=== PATIENT | female | born 1990 | race Caucasian/White ===

== ENCOUNTER 2018-05-24 07:42 | Emergency (ER) | payer BC, OTHER ==
[~2018-05-24] VITALS: Ht 170.2 cm; Wt 97.5 kg
--- NOTE | 2018-05-24 08:19 | ED GU-Female ---
General Chief Complaint: -Female Stated Complaint: ABD CRAMPING,VAGINAL BLEEDING 11WKS Source: patient Exam Limitations: no limitations History of Present Illness Date Seen by Provider: May 24, 2018 Time Seen by Provider: 07:53 Initial Comments Here with report of vaginal bleeding. Apparently passing clots this morning. She is approximately 11 weeks . She did have sexual activity 2 days ago and was concerned about bleeding. does have some mild cramping. Denies nausea except for her typical nausea with and no vomiting recently. Denies fever or chills. Denies dysuria or diarrhea. Denies vaginal discharge otherwise. Timing/Duration: this morning Severity/Quality: mild, cramping Location: suprapubic Radiation: none Activities at Onset: none Sexual [place] History: less than 2 months ago, single partner Modifying Factors: Improves With Resting Associated Symptoms: abdominal pain; No fever/chills, No lower back pain; nausea/vomiting; No urinary frequency Allergies and Home Medications Allergies Coded Allergies: Penicillins (Verified Allergy, Unknown, 05/24/18) Patient Home Medication List Home Medication List Reviewed: Yes Review of Systems Review of Systems Constitutional: see HPI; No chills, No fever Respiratory: no symptoms reported Cardiovascular: no symptoms reported Gastrointestinal: see HPI Genitourinary: see HPI : Yes LMP: Mar 13, 2018 Musculoskeletal: no symptoms reported Skin: no symptoms reported Psychiatric/Neurological: No Symptoms Reported Past Oucbpes-Udzlkd-Jupxbh Hx Past Med/Social Hx: Reviewed Nursing Past Med/Soc Hx Patient Social History Alcohol Use: Denies Use Recreational Drug Use: No Smoking Status: Former Smoker Former Smoker, Quit: Feb 15, 2018 2nd Hand Smoke Exposure: Yes Recent Foreign Travel: No Contact w/Someone Who Travel: No Recent Hopitalizations: No Seasonal Allergies Seasonal Allergies: No Past Medical History Surgeries: Yes (bilat. knees) Orthopedic Respiratory: No Cardiac: No Neurological: No Genitourinary: No Gastrointestinal: No Musculoskeletal: No Endocrine: No HEENT: No Cancer: No Psychosocial: No Family Medical History Reviewed Nursing Family Hx No Pertinent Family Hx Physical Exam Vital Signs Vital Signs - First Documented 05/24/18 07:50 Temp 98.8 Pulse 79 Resp 20 B/P (MAP) 141/89 (106) Pulse Ox 100 O2 Delivery Room Air Capillary Refill : Height, Weight, BMI Height: '" Weight: lbs. oz. kg; BMI Method: General Appearance: WD/WN, no apparent distress Neck: full range of motion, supple Cardiovascular: regular rate, rhythm, no murmur Respiratory: lungs clear, normal breath sounds Gastrointestinal: non tender, soft Back: normal inspection, no CVA tenderness, no vertebral tenderness Extremities: non-tender, normal inspection Neurologic/Psychiatric: alert, oriented x 3 Skin: normal color, warm/dry Progress/Results/Core Measures Suspected Sepsis SIRS Temperature: Pulse: Respiratory Rate: Laboratory Tests 05/24/18 08:17: White Blood Count 6.5 Blood Pressure / Mean: Laboratory Tests 05/24/18 08:17: Platelet Count 176 Results/Orders Lab Results Laboratory Tests Test 05/24/18 08:17 05/24/18 08:37 Range/Units White Blood Count 6.5 4.3-11.0 10^3/uL Red Blood Count 4.42 4.35-5.85 10^6/uL Hemoglobin 14.0 11.5-16.0 G/DL Hematocrit 40 35-52 % Mean Corpuscular Volume 90 80-99 FL Mean Corpuscular Hemoglobin 32 25-34 PG Mean Corpuscular Hemoglobin Concent 35 32-36 G/DL Red Cell Distribution Width 12.1 10.0-14.5 % Platelet Count 176 130-400 10^3/uL Mean Platelet Volume 10.1 7.4-10.4 FL Human Chorionic Gonadotropin, Quant 76905 H <5 MIU/ML Urine Color BROWN H Urine Clarity VERY CLOUDY H Urine pH 6.5 5-9 Urine Specific [place] 1.015 L 1.016-1.022 Urine Protein 2+ H NEGATIVE Urine Glucose (UA) NEGATIVE NEGATIVE Urine Ketones NEGATIVE NEGATIVE Urine Nitrite NEGATIVE NEGATIVE Urine Bilirubin NEGATIVE NEGATIVE Urine Urobilinogen NORMAL NORMAL MG/DL Urine Leukocyte Esterase 2+ H NEGATIVE Urine RBC (Auto) 5+ H NEGATIVE Urine RBC TNTC H /HPF Urine WBC 10-25 H /HPF Urine Squamous Epithelial Cells RARE /HPF Urine Crystals NONE /LPF Urine Bacteria TRACE /HPF Urine Casts NONE /LPF Urine Mucus NEGATIVE /LPF Urine Culture Indicated YES My Orders Orders - BERE STEVENSON MD Hcg,Quantitative (05/24/18 08:08) Abo Rh Type (05/24/18 08:08) Us Ob Single Fetus<14 [id number] (05/24/18 08:08) Cbc No Diff (05/24/18 08:08) Ua Culture If Indicated (05/24/18 08:34) Urine Culture (05/24/18 08:37) Vital Signs/I&O 05/24/18 07:50 Temp 98.8 Pulse 79 Resp 20 B/P (MAP) 141/89 (106) Pulse Ox 100 O2 Delivery Room Air Capillary Refill : Progress Note : Progress Note Seen and evaluated. Bedside ultrasound performed by me. Does appear to have gravid uterus but no obvious pole or heart tones noted. There does appear to be debris within the uterus. We will get blood type, CBC and hCG Quant and order formal ultrasound. Patient and family informed of my concerns. 0935: Formal ultrasound complete and preliminary results show demise at approximately 8 weeks. No heart tones noted. This was discussed with patient and family. Patient is passing increasing amount of clots currently. She is not in significant pain and is okay with and see if the miscarriage will complete without D&C. She will follow-up with Dr. Waite tomorrow. Patient is O + and does not require RhoGAM. Discharged home with return precautions. Patient and family verbalize understanding instructions and agreement with plan. Diagnostic Imaging Diagonstic Imaging: Ultrasound Plain Films/CT/US/NM/MRI: pelvis Comments Intrauterine demise with no heart tones and pole of approximately 8 2/7 weeks. Departure Impression Primary Impression: Incomplete miscarriage Disposition: HOME, SELF-CARE Condition: Stable Departure-Patient Inst. Decision time for Depature: 09:39 Referrals: JOHN WAITE DO (PCP/Family) Primary Care Physician Patient Instructions: Miscarriage (DC) Add. Discharge Instructions: All discharge instructions reviewed with patient and/or family. Voiced understanding. Follow-up with your doctor tomorrow for recheck and further evaluation. Return for markedly increasing pain, bleeding greater than 2 pads per hour for more than 2 hours, fever, weakness or other concerns as needed. You may take Tylenol /acetaminophen 1000 mg every 8 hours as needed for pain. You may take ibuprofen 800 mg every 8 hours as needed for pain. Your beta hCG level was 32530 and your blood type is O+. BERE STEVENSON MD May 24, 2018 08:19
[2018-05-24 08:25] LABS: MEAN PLATELET VOLUME 10.1 FL (7.4-10.4); RED BLOOD COUNT 4.42 10^6/uL (4.35-5.85); RED CELL DISTRIBUTION WIDTH 12.1 % (10.0-14.5); WHITE BLOOD COUNT 6.5 10^3/uL (4.3-11.0)
[2018-05-24 08:40] LABS: BILIRUBIN,URINE NEGATIVE (NEGATIVE); CLARITY,URINE VERY CLOUDY; COLOR,URINE BROWN; GLUCOSE, URINE (UA) NEGATIVE (NEGATIVE); KETONES,URINE NEGATIVE (NEGATIVE); LEUKOCYTE ESTERASE ,URINE 2+ (NEGATIVE); NITRITE,URINE NEGATIVE (NEGATIVE); PH,URINE 6.5 (5-9); PROTEIN,URINE 2+ (NEGATIVE); UROBILINOGEN,URINE NORMAL (NORMAL)
[2018-05-24 08:48] LABS: BACTERIA,URINE TRACE /HPF; RBC,URINE TNTC /HPF; SQUAMOUS EPITHELIAL CELL,UR RARE /HPF
--- NOTE | 2018-05-24 09:50 | Diagnostic Imaging Report ---
INDICATION: Cramping and bleeding. First trimester . COMPARISON: None. TECHNIQUE: Transvaginal sonogram was performed. FINDINGS: There is a single intrauterine gestational sac. Within the gestational sac, there is a pole. pole measures 1.7 cm in length. This is consistent with 8 week and 2 day-old gestation. However, no heart movement can be identified. Findings are consistent with demise. Uterine fibroid is noted and measures 2.2 x 2.1 x 2.5 cm. Evaluation of the adnexa was performed, but ovaries cannot be adequately identified. No adnexal masses are seen. There is no significant free fluid. IMPRESSION: 1. Findings consistent with demise. Dictated by: Dictated on workstation # [id number]
[2018-05-24 10:02] VITALS: BP 122/79
== END 2018-05-24 10:02 | disposition home or self-care (01) ==
LOC: EDUNIT# 07:42 → ER 07:44
DX: O03.4 Incomplete spontaneous abortion without complication (principal); Z88.0 Allergy status to penicillin; Z3A.11 11 weeks gestation of pregnancy; Z87.891 Personal history of nicotine dependence
CPT/HCPCS: 36415; 76817; 81000; 84702; 85027; 86900; 86901; 87088

== ENCOUNTER 2020-04-10 05:27 | Inpatient (IN) | payer BC ==
[2020-04-10] VITALS (71 sets, daily range): BP systolic 93–146; BP diastolic 51–85
[~2020-04-10] VITALS: Ht 172.7 cm; Wt 118.0 kg
[2020-04-10] MEDS ORDERED: D5 LR IV SOLUTION 1,000 ML IV ONE (06:01)
[2020-04-10] MEDS: D5 LR IV SOLUTION 1,000 ML IV SCH ×3 (06:39→22:06)
--- NOTE | 2020-04-10 07:12 | NUR ---
Pt report received from Joi PATEL at this time. Pt already has IV with IV fluids running. Pt states she does not want an epidural. Dr Waite plans to be here this AM for AROM.
[2020-04-10] MEDS ORDERED: OXYTOCIN PRE-MIX DRIP 500 ML IV SCH (07:15)
[2020-04-10] MEDS ORDERED: MINERAL OIL CONCENTRATE 99.9% 15 ML UDC TOP PRN (07:15)
[2020-04-10 07:25] LABS: BASOPHILS % (AUTO) 0 % (0-10); EOSINOPHILS # (AUTO) 0.1 10^3/uL (0.0-0.3); EOSINOPHILS % (AUTO) 1 % (0-10); HEMATOCRIT 38 % (35-52); HEMOGLOBIN 12.9 G/DL (11.5-16.0); LYMPHOCYTES # (AUTO) 2.2 X 10^3 (1.0-4.0); LYMPHOCYTES % (AUTO) 26 % (12-44); MEAN CORPUSCULAR HEMOGLOBIN 32 PG (25-34); MEAN CORPUSCULAR HGB CONC 34 G/DL (32-36); MEAN CORPUSCULAR VOLUME 92 FL (80-99); MEAN PLATELET VOLUME 11.5 FL (7.4-10.4); MONOCYTES # (AUTO) 0.6 X 10^3 (0.0-1.0); MONOCYTES % (AUTO) 7 % (0-12); NEUTROPHILS # (AUTO) 5.6 X 10^3 (1.8-7.8); NEUTROPHILS % (AUTO) 65 % (42-75); PLATELET COUNT 210 10^3/uL (130-400); RED CELL DISTRIBUTION WIDTH 13.6 % (10.0-14.5); WHITE BLOOD COUNT 8.5 10^3/uL (4.3-11.0)
--- NOTE | 2020-04-10 08:00 | History & Physical-OB/GYN ---
History of Present Illness History of Present Illness Reason for visit/HPI Ms. Brambila, A1 at 39 weeks, presents to the hospital for Pitocin Induction of Labor. Date of Admission Apr 10, 2020 at 05:27 Date Seen by a Provider: Apr 10, 2020 Time Seen by a Provider: 07:10 I consulted on this patient on 04/10/20 07:52 Attending Physician Darien Waite DO Admitting Physician Darien Waite DO Consult Allergies and Home Medications Allergies Coded Allergies: Penicillins (Verified Allergy, Unknown, 05/24/18) sulfacetamide (Verified Allergy, Unknown, 04/10/20) Patient Home Medication List Home Medication List Reviewed: Yes Past Yigkpuj-Joszqs-Tvclaw Hx Patient Social History Number of Children: 0 Number of living children: 0 Alcohol Use: Denies Use Smoking Status: Former Smoker Former Smoker, Quit: Feb 15, 2018 2nd Hand Smoke Exposure: Yes Recent Foreign Travel: No Contact w/other who traveled: No Recent Hopitalizations: No Seasonal Allergies Seasonal Allergies: No Surgeries Yes (bilat. knees) Orthopedic Respiratory No Cardiovascular No Neurological No Reproductive System : Yes Expected Date of Delivery: Apr 17, 2020 Hx Reproductive Disorders: No Sexually Transmitted Disease: No HIV/AIDS: No Genitourinary No Gastrointestinal No Musculoskeletal No Endocrine History of Endocrine Disorders: No HEENT History of HEENT Disorders: No Cancer No Psychosocial History of Psychiatric Problem: No Integumentary History of Skin or Integumenta: No Blood Transfusions History of Blood Disorders: No Family Medical History Significant Family History: No Pertinent Family Hx Review of Systems Constitutional: see HPI Physical Exam Physical Exam Vital Signs Vital Signs Date Time Temp Pulse Resp B/P (MAP) Pulse Ox O2 Delivery O2 Flow Rate FiO2 04/10/20 06:00 36.4 90 18 128/82 (97) 97 Capillary Refill : Labs Laboratory Tests 04/10/20 06:00: White Blood Count 8.5, Red Blood Count 4.10L, Hemoglobin 12.9, Hematocrit 38, Mean Corpuscular Volume 92, Mean Corpuscular Hemoglobin 32, Mean Corpuscular Hemoglobin Concent 34, Red Cell Distribution Width 13.6, Platelet Count 210, Mean Platelet Volume 11.5H, Neutrophils (%) (Auto) 65, Lymphocytes (%) (Auto) 26, Monocytes (%) (Auto) 7, Eosinophils (%) (Auto) 1, Basophils (%) (Auto) 0, Neutrophils # (Auto) 5.6, Lymphocytes # (Auto) 2.2, Monocytes # (Auto) 0.6, Eosinophils # (Auto) 0.1, Basophils # (Auto) 0.0 General Appearance: No Apparent Distress Respiratory: Chest Non Tender, Lungs Clear, Normal Breath Sounds Cardiovascular: Regular Rate, Rhythm, No Murmur Abdominal: normal bowel sounds, soft Gynecology/General: No lesions Labia: WNL Vagina: WNL Cervix: WNL Cervix Mass: soft Cervix OS: open (1 cm/50%/-3 Vertex/Intact) Uterus: WNL, Enlarged (Gravid) Extremity: Normal Inspection, Non Tender Assessment/Plan Assessment and Plan Assessment: Intrauterine at 39 weeks Plan: Pitocin Induction of Labor. AROM. Pain management per patient's request. I expect a normal spontaneous vaginal delivery Admission Diagnosis Admission Status: Inpatient Order (span 2 midnights) Reason for Inpatient Admission: Intrauterine at 39 weeks being induced DARIEN WAITE DO Apr 10, 2020 08:00
--- NOTE | 2020-04-10 11:45 | NUR ---
Dr Waite updated on pt report by this RN at this time. /-2 SVE by this RN. Pitocin rate at 20 milliunits/hr, UC q2min. Category 1 FHT. Still having a difficult time tracing FHT. Pt declined FSE placement wiht RN's last SVE due to pain. Pt doing well otherwise. No new orders received.
--- NOTE | 2020-04-10 12:45 | NUR ---
Dr Waite at bedside at 1215. RN updated Dr that pitocin rate was decreased due to possible hyperstimulation/ UC rate. Pitocin rate now at 16. Dr Waite performs SVE and places FSE at 1216. Variables present after SVE/FSE placement. This RN turns pt to R side at 1217 then to L side at 1219. Pitocin turned off at 1221, pt repositioned to high fowlers. fluid bolus started at 1223 and O2 on via nonrebreather at 10L. recovered. This RN remains at bedside, answers questions. Dr Waite notified of events by this RN at 1243. FHT strip reviewed by Dr Waite. Orders received to restart pitocin at approx 1300 at 2 milliunits/hr and increase slowly.
--- NOTE | 2020-04-10 14:57 | NUR ---
Dr Waite updated on pt report. /-1, UC q 2-3 min on 4 of pitocin. Hurting good with UC, considering pain meds/epidural. Baby only tolerates certain positions but otherwise doing well.
--- NOTE | 2020-04-10 15:43 | NUR ---
Juanis Ritchie CHIP APPLYING MACHINE TENDER called by RN for epidural placement. Chau states she will be 30 minutes ETA.
[2020-04-10] MEDS ORDERED: fentaNYL 2 mcg/ml BUPIVA 0.125 100 ML ONE (15:46)
[2020-04-10] MEDS ORDERED: fentaNYL INJECTION 100 MCG/2 ML AMP ONE (16:20)
[2020-04-10] MEDS ORDERED: BUPIVACAINE 0.25% 30 ML (SENSORCAINE) VIAL ONE (16:20)
[2020-04-10] MEDS: EPIDURAL (fentaNYL 2 MCG/ML BUPIVA 0.125%)100 ML BAG EPI PRN ×2 (16:38→23:27)
[2020-04-10] MEDS ORDERED: LACTATED RINGERS 1,000 ML IV SCH (16:52)
[2020-04-10] MEDS ORDERED: METOCLOPRAMIDE INJ 10 MG/2 ML (REGLAN) IV PRN (17:00)
[2020-04-10] MEDS ORDERED: NALOXONE 0.4 MG/ML 1 ML (NARCAN) VIAL IV PRN ×2 (17:00)
[2020-04-10] MEDS ORDERED: diphenhydrAMINE 50 MG/ML INJ (BENADRYL) IV PRN (17:00)
[2020-04-10] MEDS ORDERED: ONDANSETRON 4 MG/2 ML (SDV) Z0FRAN IV PRN (17:00)
--- NOTE | 2020-04-10 17:30 | NUR ---
Dr carter updated on pt report. 1 with epidural now and resting well through UC. UC pattern, T reviewed. No new orders received. on unit at this time.
--- NOTE | 2020-04-10 19:11 | NUR ---
report given to dio plummer at this time.
--- NOTE | 2020-04-10 19:35 | NUR ---
PT CONT TO SIT UP IN BED. DENIES ANY PAIN AT THIS TIME. ENCOURAGED TO CONTINUE TO REST. AT SIDE.
[2020-04-11] VITALS (16 sets, daily range): BP systolic 112–158; BP diastolic 60–88
[2020-04-11] MEDS ORDERED: LIDOCAINE 1% INJ 20 ML 20 ML VIAL ONE ×2 (01:46→01:48)
[2020-04-11] MEDS ORDERED: OXYTOCIN PRE-MIX DRIP 500 ML IV SCH (02:27)
[2020-04-11] MEDS ORDERED: MEASLES,MUMPS,RUBELLA 1 EA INJ SQ ONE (02:30)
[2020-04-11] MEDS ORDERED: DIBUCAINE (NUPERCAINAL) 1% OINT 30 GM TOP PRN (02:30)
[2020-04-11] MEDS ORDERED: BENZOCAINE/MENTHOL (DERMOPLAST) 60 ML CAN TP PRN (02:30)
[2020-04-11] MEDS ORDERED: TETANUS,DIPTH,PERTUSS P/F (BOOSTRIX) 0.5 ML VIAL IM ONE (02:30)
--- NOTE | 2020-04-11 02:33 | OB Labor & Delivery Record ---
Vag Delivery Note Vag Delivery Note Date of Delivery: 04/11/20 Preoperative Diagnosis: Clint hamlin a (29 /Para / ,Gestational Age (wks)39 08/24 Postoperative Diagnosis: Same Surgeon: JOHN BABIN Postal Transportation Clerk: [None] Anesthesia: [Epidural and Pudendal Block] Delivery Type: [Normal Spontaneous Viable Laquey] Findings: [A healthy viable male ] Viable [Male] , apgars [], weight [] Lacerations: Midline Episiotomy Intact placenta with 3 vessel cord. No nuchal cord, body cord or shoulder dystocia Estimated Blood Loss: [300] ml Complications: None Condition: Stable Description of Procedure: The patient is a 29 year old female who presented [for Pitocin Induction of Labor]. She was admitted and informed consent was obtained. Her labor course was unremarkable. She progressed to complete dilatation and began to push. She was then set up for delivery. The infant's head was delivered atraumatically in the [KARLO] position. The shoulders and remainder of the 's body were then delivered without difficulty. Upon delivery, the head was held below the level of the perineum and the mouth and nares were bulb suctioned. The cord was doubly clamped and cut and the was handed off to the pediatric staff where NRP protocol was followed. An intact placenta with 3-vessel cord delivered via Markus and there was found to be minimal bleeding.~ Vigorous fundal massage was performed and the fundus was found to be firm. IV oxytocin was given. Examination of the vagina and perineum revealed a [midline episiotomy] that was repaired in the usual fashion with 3-0 and 2-0 vicryl suture. Following the repair, sponge, instrument and needle counts were correct. Mom and baby were both in stable condition in the labor suite. Vitals - Labs Vital Signs - I&O Vital Signs Date Time Temp Pulse Resp B/P (MAP) Pulse Ox O2 Delivery O2 Flow Rate FiO2 04/11/20 00:00 79 143/76 (98) Room Air 04/10/20 23:45 84 137/76 (96) Room Air 04/10/20 23:30 84 130/79 (96) Room Air 04/10/20 23:15 79 136/71 (92) Room Air 04/10/20 23:00 80 115/55 (75) Room Air 04/10/20 22:45 75 109/61 (77) Room Air 04/10/20 22:30 36.8 72 98/55 (69) Room Air 04/10/20 22:15 73 97/53 (68) Room Air 04/10/20 22:00 79 106/56 (73) Room Air 04/10/20 21:45 73 102/69 (80) Room Air 04/10/20 21:30 73 106/64 (78) Room Air 04/10/20 21:15 75 114/63 (80) Room Air 04/10/20 21:00 36.9 73 103/57 (72) Room Air 04/10/20 20:45 75 114/63 (80) Room Air 04/10/20 20:30 82 127/68 (87) Room Air 04/10/20 20:15 88 117/72 (87) Room Air 04/10/20 20:00 87 117/73 (88) Room Air 04/10/20 19:45 77 119/67 (84) Room Air 04/10/20 19:30 78 118/59 (78) Room Air 04/10/20 19:15 81 118/69 (85) Room Air 04/10/20 19:00 84 111/78 (89) Room Air 04/10/20 18:45 72 100/59 (73) Room Air 04/10/20 18:30 36.6 73 93/53 (66) Room Air 04/10/20 18:15 80 16 118/62 (80) Room Air 04/10/20 18:00 78 119/67 (84) Room Air 04/10/20 17:45 87 121/70 (87) Room Air 04/10/20 17:35 72 124/67 (86) 99 Room Air 04/10/20 17:30 36.1 73 124/67 (86) Room Air 04/10/20 17:25 85 127/69 (88) Room Air 04/10/20 17:20 79 132/65 (87) Room Air 04/10/20 17:15 80 128/72 (90) Room Air 04/10/20 17:10 72 127/71 (89) Room Air 04/10/20 17:05 91 126/70 (88) Room Air 04/10/20 17:00 93 132/69 (90) Room Air 04/10/20 16:57 83 127/63 (84) Room Air 04/10/20 16:53 83 123/67 (85) Room Air 04/10/20 16:50 87 119/68 (85) Room Air 04/10/20 16:47 80 114/59 (77) Room Air 04/10/20 16:45 80 115/56 (75) Room Air 04/10/20 16:43 80 115/56 (75) 98 Room Air 04/10/20 16:39 80 138/63 (88) 99 Room Air 04/10/20 16:30 84 131/83 (99) Room Air 04/10/20 16:15 76 138/79 (98) Room Air 04/10/20 16:00 83 129/68 (88) Room Air 04/10/20 15:45 76 128/70 (89) Room Air 04/10/20 15:30 80 144/78 (100) Room Air 04/10/20 15:15 78 18 115/70 (85) Room Air 04/10/20 15:00 Room Air 04/10/20 14:45 Room Air 04/10/20 14:30 Room Air 04/10/20 14:15 86 131/77 (95) Room Air 04/10/20 14:00 36.3 75 122/66 (84) Room Air 04/10/20 13:45 80 121/72 (88) Room Air 04/10/20 13:30 75 111/51 (71) Room Air 04/10/20 13:15 36.6 75 18 118/70 (86) Room Air 04/10/20 13:00 75 129/78 (95) Room Air 04/10/20 12:45 83 129/75 (93) Non Rebreather 10.00 04/10/20 12:30 70 116/67 (83) Non Rebreather 10.00 04/10/20 12:15 77 131/66 (87) Room Air 04/10/20 12:00 76 133/58 (83) Room Air 04/10/20 11:45 76 124/74 (91) Room Air 04/10/20 11:30 Room Air 04/10/20 11:15 80 122/73 (89) Room Air 04/10/20 11:00 36.5 75 18 126/75 (92) Room Air 04/10/20 10:45 76 123/63 (83) Room Air 04/10/20 10:30 73 110/62 (78) Room Air 04/10/20 10:15 77 128/73 (91) Room Air 04/10/20 10:00 82 129/73 (91) Room Air 04/10/20 09:45 71 136/64 (88) Room Air 04/10/20 09:30 79 134/74 (94) Room Air 04/10/20 09:15 87 133/85 (101) Room Air 04/10/20 09:00 83 126/63 (84) Room Air 04/10/20 08:45 82 122/69 (86) 04/10/20 08:30 76 129/71 (90) 04/10/20 08:15 82 16 146/67 (93) 04/10/20 08:00 36.4 04/10/20 06:00 36.4 90 18 128/82 (97) 97 I & O 04/11/20 07:00 Intake Total 1000 ml Balance 1000 ml Labs Laboratory Tests 04/10/20 06:00: White Blood Count 8.5, Red Blood Count 4.10L, Hemoglobin 12.9, Hematocrit 38, Mean Corpuscular Volume 92, Mean Corpuscular Hemoglobin 32, Mean Corpuscular Hemoglobin Concent 34, Red Cell Distribution Width 13.6, Platelet Count 210, Mean Platelet Volume 11.5H, Neutrophils (%) (Auto) 65, Lymphocytes (%) (Auto) 26, Monocytes (%) (Auto) 7, Eosinophils (%) (Auto) 1, Basophils (%) (Auto) 0, Neutrophils # (Auto) 5.6, Lymphocytes # (Auto) 2.2, Monocytes # (Auto) 0.6, Eosinophils # (Auto) 0.1, Basophils # (Auto) 0.0 JOHN BABIN DO Apr 11, 2020 02:33
--- NOTE | 2020-04-11 02:56 | NUR ---
PT SITTING UP IN BED WITH USE OF NIPPLE SHIELD.
--- NOTE | 2020-04-11 03:20 | NUR ---
EPIDURAL CATH REMOVED WITH NO RESISTANCE AT THIS TIME WITH BLACK TIP INTACT. PT ASSISTED UP TO W/C AND TO BATHROOM TO TRY TO VOID AND COMPLETE PERICARE.
[2020-04-11] MEDS: IBUPROFEN 800 MG (MOTRIN) TAB PO SCH ×3 (03:53→18:18)
--- NOTE | 2020-04-11 04:10 | NUR ---
LIGHTS OUT SO PT MAY REST.
[2020-04-11] MEDS: WITCH HAZEL(TUCKS) 40 EA JAR TOP PRN ×2 (04:20→20:00)
[2020-04-11] MEDS ORDERED: CATHETER FLUSH 10 ML SYR IV SCH (06:00)
--- NOTE | 2020-04-11 06:00 | NUR ---
ANESTHESIA STUDENT HERE TO SEE PT.
--- NOTE | 2020-04-11 06:15 | NUR ---
PT UP TO BATHROOM. VOIDED WITHOUT DIFFICULTY.
--- NOTE | 2020-04-11 06:25 | NUR ---
DR BABIN HERE TO SEE PT.
[2020-04-11] MEDS: ACETAMINOPHEN 500 MG TAB (TYLENOL) PO SCH ×3 (06:37→20:01)
--- NOTE | 2020-04-11 07:14 | NUR ---
REPORT TO Annie PORTER RN
--- NOTE | 2020-04-11 07:29 | Anesthesia-Regional Post-Op ---
Regional Patient Condition Mental Status: Alert, Oriented x3 Circulation: Same as Pre-Op Headache: Absent Sensation: Full Recovery Motor Block: Absent Post Op Complications Complications None Follow Up Care/Instructions Patient Instructions None needed. Anesthesia/Patient Condition Patient is doing well, no complaints, stable vital signs, no apparent adverse anesthesia problems. No complications reported per nursing. IMER APONTE CRNA Apr 11, 2020 07:29
[2020-04-11] MEDS: DOCUSATE SODIUM 100 MG (COLACE) CAP PO SCH ×2 (08:31→20:00)
[2020-04-11] MEDS: PRENATAL VITAMIN 1 EA TAB PO SCH (08:31)
--- NOTE | 2020-04-11 10:00 | NUR ---
ice pack given to place on perineum when desires.
[2020-04-12] MEDS: IBUPROFEN 800 MG (MOTRIN) TAB PO SCH (01:59)
[2020-04-12] MEDS: ACETAMINOPHEN 500 MG TAB (TYLENOL) PO SCH ×2 (01:59→07:25)
[2020-04-12 05:05] LABS: BASOPHILS % (AUTO) 0 % (0-10); EOSINOPHILS # (AUTO) 0.1 10^3/uL (0.0-0.3); EOSINOPHILS % (AUTO) 2 % (0-10); HEMATOCRIT 33 % (35-52); HEMOGLOBIN 10.9 G/DL (11.5-16.0); LYMPHOCYTES # (AUTO) 2.1 X 10^3 (1.0-4.0); LYMPHOCYTES % (AUTO) 22 % (12-44); MEAN CORPUSCULAR HEMOGLOBIN 31 PG (25-34); MEAN CORPUSCULAR HGB CONC 33 G/DL (32-36); MEAN CORPUSCULAR VOLUME 95 FL (80-99); MEAN PLATELET VOLUME 11.2 FL (7.4-10.4); MONOCYTES # (AUTO) 0.6 X 10^3 (0.0-1.0); MONOCYTES % (AUTO) 7 % (0-12); NEUTROPHILS # (AUTO) 6.6 X 10^3 (1.8-7.8); NEUTROPHILS % (AUTO) 70 % (42-75); PLATELET COUNT 148 10^3/uL (130-400); WHITE BLOOD COUNT 9.4 10^3/uL (4.3-11.0)
[2020-04-12 05:40] VITALS: BP 116/72
[2020-04-12] MEDS ORDERED: ACET-93 PO (06:33)
[2020-04-12] MEDS ORDERED: OXYC5TAB96 PO (06:33)
[2020-04-12] MEDS ORDERED: IBUP-1780 PO (06:33)
[2020-04-12] MEDS ORDERED: DCS100C PO (06:33)
--- NOTE | 2020-04-12 06:38 | Discharge Summary ---
Diagnosis/Chief Complaint Date of Admission Apr 10, 2020 at 05:27 Date of Discharge April 12, 2020 Discharge Date: Apr 12, 2020 Discharge Time: 08:00 Admission Diagnosis Admission Diagnosis Intrauterine at 39 1/7 weeks Discharge Diagnosis Intrauterine at 39 1/7 weeks--delivered Reason Hospital Visit Ms. Brambila, A1 at 39 weeks, presents to the hospital for Pitocin Induction of Labor. Discharge Summary Hospital Course Was the Problem List Reviewed?: Yes Hospital Course Ms. Ferris, A1 at 39 weeks, was admitted for Pitocin Induction of Labor. I artificially ruptured her membranes. She received an epidural for pain management. She progressed to complete and after a short course of pushing, delivered a healthy viable . The remainder of her hospitalization was unremarkable. Her vital signs remained stable throughout her hospitalization She will be discharge to home with instructions, prescriptions, and a follow up appointment. Labs Laboratory Tests 04/10/20 06:00: Red Blood Count 4.10L, Mean Platelet Volume 11.5H 04/12/20 04:44: Red Blood Count 3.48L, Mean Platelet Volume 11.2H, Hemoglobin 10.9L, Hematocrit 33L Procedures None. Discharge Physical Examination Allergies: Coded Allergies: Penicillins (Verified Allergy, Unknown, 05/24/18) sulfacetamide (Verified Allergy, Unknown, 04/10/20) Vitals & I&Os Vital Signs Date Time Temp Pulse Resp B/P (MAP) Pulse Ox O2 Delivery O2 Flow Rate FiO2 04/12/20 05:40 36.4 80 16 116/72 (87) 97 Room Air 04/10/20 12:45 10.00 General Appearance: Alert, Oriented X3, Cooperative HEENT: Atraumatic Respiratory: Clear to Auscultation, Normal Air Movement Cardiovascular: Regular Rate, No Murmurs Abdominal: Normal Bowel Sounds, No Tenderness Extremities: No Clubbing, No Cyanosis Skin: No Rashes Neuro: Normal Gait, Normal Speech Psych/Mental Status: Mental Status NL Discharge Home Medications Reviewed and agree with Discharge Medication list on patient's Discharge Instruction sheet Instructions to Patient/Family Please see electronic discharge instructions given to patient. Clinical Quality Measures DVT/VTE Risk/Contraindication: Risk Factor Score Per Nursin RFS Level Per Nursing on Admit: 1=Low/No VTE PPX JOHN BABIN DO Apr 12, 2020 06:38
[2020-04-12 07:20] VITALS: BP 113/66
[2020-04-12] MEDS: PRENATAL VITAMIN 1 EA TAB PO SCH (07:25)
[2020-04-12] MEDS: DOCUSATE SODIUM 100 MG (COLACE) CAP PO SCH (07:25)
--- NOTE | 2020-04-12 09:20 | NUR ---
Discharge instructions explained, signed and to patient. pt verbalized understanding of instructions and denied questions.
[2020-04-12] MEDS: WITCH HAZEL(TUCKS) 40 EA JAR TOP PRN (09:24)
[2020-04-12 11:15] VITALS: BP 113/66
--- NOTE | 2020-04-12 11:15 | NUR ---
Discharged to home. Ambulates self downstairs to private vehicle with belongings in hand. Accompanied by staff/student rn
== END 2020-04-12 11:15 | disposition home or self-care (01) | DRG 807 ==
LOC: LDRP 05:27
PROVIDERS: ADMIT Obstetrics & Gynecology; ATTEND Obstetrics & Gynecology
PROC: 10E0XZZ Delivery of Products of Conception, External Approach (ICD-10-PCS; principal; 2020-04-10)
PROC: 10907ZC Drainage of Amniotic Fluid, Therapeutic from Products of Conception, Via Natural or Artificial Opening (ICD-10-PCS; 2020-04-10)
PROC: 3E033VJ Introduction of Other Hormone into Peripheral Vein, Percutaneous Approach (ICD-10-PCS; 2020-04-10)
PROC: 0W8NXZZ Division of Female Perineum, External Approach (ICD-10-PCS; 2020-04-10)
DX: O80 Encounter for full-term uncomplicated delivery (principal); Z37.0 Single live birth; Z3A.39 39 weeks gestation of pregnancy
CPT/HCPCS: 36415; 85025; 86850; 86900; 86901; 90715

== ENCOUNTER 2020-05-18 21:38 | Emergency (ER) | payer BC ==
[~2020-05-18 21:38] MED LIST: ACET-93 PO; DCS100C PO; IBUP-1780 PO; OXC5T PO
--- NOTE | 2020-05-18 21:50 | ED Chest Pain ---
General Chief Complaint: Chest Pain Stated Complaint: CHEST PAIN;UPPER BACK PAIN Source: patient Exam Limitations: no limitations History of Present Illness Date Seen by Provider: May 18, 2020 Time Seen by Provider: 21:47 Initial Comments ER with chest pain/upper back pain that began about 2 hours ago. She had [place] food 4 hours ago. No nausea. She thought this might be heartburn at first so she tried to wait this out at home. No nausea or vomiting. Does have some shortness of breath that began on the way here. She does have known gallstones she states. She is one month post delivery. Timing/Duration: constant Severity/Quality: moderate Location: central, epigastric Radiation: shoulders, back Activities at Onset: none ASA po SECRET CODE EXPERT: No NTG SL SECRET CODE EXPERT: No Associated Symptoms: denies symptoms Allergies and Home Medications Allergies Coded Allergies: Penicillins (Verified Allergy, Unknown, 05/24/18) sulfacetamide (Verified Allergy, Unknown, 04/10/20) Home Medications Acetaminophen 500 Mg Tablet, 1,000 MG PO Q6HR Prescribed by: JOHN BABIN on 04/12/20632 Docusate Sodium 100 Mg Capsule, 100 MG PO BID Prescribed by: JOHN WALLACES on 04/12/20632 Ibuprofen 800 Mg Tablet, 800 MG PO Q8HR Prescribed by: JOHN BABIN on 04/12/20632 Oxycodone Hcl 5 Mg Tablet, 5 MG PO Q6H Prescribed by: JOHN E TALYA on 04/12/20632 Patient Home Medication List Home Medication List Reviewed: Yes Review of Systems Review of Systems Constitutional: see HPI; No chills, No fever EENTM: No Symptoms Reported Respiratory: No Symptoms Reported; Denies Cough; Shortness of Air Cardiovascular: See HPI, Chest Pain Gastrointestinal: See HPI, Abdominal Pain Genitourinary: No Symptoms Reported Musculoskeletal: no symptoms reported Skin: no symptoms reported Psychiatric/Neurological: No Symptoms Reported Endocrine: No Symptoms Reported Past Nzfvfoo-Qnckdi-Ejlurc Hx Patient Social History Former Smoker, Quit: Feb 15, 2018 2nd Hand Smoke Exposure: Yes Recent Foreign Travel: No Contact w/Someone Who Travel: No Recent Hopitalizations: No Seasonal Allergies Seasonal Allergies: No Past Medical History Surgeries: Yes Orthopedic Respiratory: No Cardiac: No Neurological: No Reproductive Disorders: No Sexually Transmitted Disease: No HIV/AIDS: No Genitourinary: No Gastrointestinal: No Musculoskeletal: No Endocrine: No HEENT: No Cancer: No Psychosocial: No Integumentary: No Blood Disorders: No Adverse Reaction/Blood Tranf: No Family Medical History FH: scoliosis G8 SISTER FH: stroke G8 SISTER Heart murmur 19 FATHER Hypertension 19 MOTHER No Pertinent Family Hx Physical Exam Vital Signs Vital Signs - First Documented 05/18/20 21:40 Temp 36.6 Pulse 73 Resp 16 B/P (MAP) 136/89 (105) O2 Delivery Room Air Capillary Refill : Less Than 3 Seconds Height, Weight, BMI Height: 5'7.00" Weight: 215lbs. oz. 97.712843oh; 39.56 BMI Method:Stated General Appearance: No Apparent Distress, WD/WN, Other (no distress alert and oriented speaks in full sentences oxygen saturation 99% room air, heart rate in the 70s.) Respiratory: No Accessory Muscle Use, No Respiratory Distress Cardiovascular: Regular Rate, Rhythm, Normal Peripheral Pulses, Other (tender to deep palpation right upper quadrant) Gastrointestinal: Normal Bowel Sounds, Soft, Tenderness Extremity: Normal Capillary Refill, Normal Inspection Neurologic/Psychiatric: Alert, Oriented x3 Skin: Normal Color, Warm/Dry Progress/Results/Core Measures Results/Orders Lab Results Laboratory Tests Test 05/18/20 21:49 Range/Units White Blood Count 8.5 4.3-11.0 10^3/uL Red Blood Count 4.26 3.80-5.11 10^6/uL Hemoglobin 13.3 11.5-16.0 g/dL Hematocrit 38 35-52 % Mean Corpuscular Volume 90 80-99 fL Mean Corpuscular Hemoglobin 31 25-34 pg Mean Corpuscular Hemoglobin Concent 35 32-36 g/dL Red Cell Distribution Width 12.1 10.0-14.5 % Platelet Count 213 130-400 10^3/uL Mean Platelet Volume 9.8 9.0-12.2 fL Immature Granulocyte % (Auto) 1 % Neutrophils (%) (Auto) 46 42-75 % Lymphocytes (%) (Auto) 44 12-44 % Monocytes (%) (Auto) 7 0-12 % Eosinophils (%) (Auto) 3 0-10 % Basophils (%) (Auto) 1 0-10 % Neutrophils # (Auto) 3.9 1.8-7.8 10^3/uL Lymphocytes # (Auto) 3.7 1.0-4.0 10^3/uL Monocytes # (Auto) 0.6 0.0-1.0 10^3/uL Eosinophils # (Auto) 0.2 0.0-0.3 10^3/uL Basophils # (Auto) 0.1 0.0-0.1 10^3/uL Immature Granulocyte # (Auto) 0.0 0.0-0.1 10^3/uL Prothrombin Time 12.2 12.2-14.7 SEC INR Comment 0.9 0.8-1.4 Activated Partial Thromboplast Time 29 24-35 SEC D-Dimer 0.74 H 0.00-0.49 UG/ML Sodium Level 140 135-145 MMOL/L Potassium Level 3.6 3.6-5.0 MMOL/L Chloride Level 106 98-107 MMOL/L Carbon Dioxide Level 22 21-32 MMOL/L Anion Gap 12 5-14 MMOL/L Blood Urea Nitrogen 8 7-18 MG/DL Creatinine 0.79 0.60-1.30 MG/DL Estimat Glomerular Filtration Rate > 60 BUN/Creatinine Ratio 10 Glucose Level 105 70-105 MG/DL Calcium Level 9.4 8.5-10.1 MG/DL Corrected Calcium 9.1 8.5-10.1 MG/DL Magnesium Level 1.9 1.6-2.4 MG/DL Total Bilirubin 0.4 0.1-1.0 MG/DL Aspartate Amino Transf (AST/SGOT) 20 5-34 U/L Alanine Aminotransferase (ALT/SGPT) 29 0-55 U/L Alkaline Phosphatase 91 40-136 U/L Myoglobin 19.5 10.0-92.0 NG/ML Troponin I < 0.028 <0.028 NG/ML B-Type Natriuretic Peptide < 10.0 <100.0 PG/ML Total Protein 7.8 6.4-8.2 GM/DL Albumin 4.4 3.2-4.5 GM/DL Lipase 18 8-78 U/L Serum Test, Qualitative NEGATIVE NEGATIVE My Orders Orders - FABIANO FOSTER APRN Cbc With Automated Diff (05/18/20 21:40) Magnesium (05/18/20 21:40) Comprehensive Metabolic Panel (05/18/20 21:40) Myoglobin Serum (05/18/20 21:40) Protime With Inr (05/18/20 21:40) Partial Thromboplastin Time (05/18/20 21:40) Lipase (05/18/20 21:40) BNP (05/18/20 21:40) Fibrin Degradation Products (05/18/20 21:40) Troponin I (05/18/20 21:40) Chest 1 View, Ap/Pa Only (05/18/20 21:40) Ekg Tracing (05/18/20 21:40) O2 (05/18/20 21:40) Monitor-Rhythm Ecg Trace Only (05/18/20 21:40) Lipid Panel (05/19/20 06:00) Ed Iv/Invasive Line Start (05/18/20 21:40) Antacid Suspension (Mylanta Suspension (05/18/20 22:00) Fentanyl Injection (Sublimaze Injection (05/18/20 22:00) Lidocaine 2% Viscous 15 Ml (Xylocaine Vi (05/18/20 22:00) Lorazepam Injection (Ativan Injection) (05/18/20 22:15) Lorazepam Injection (Ativan Injection) (05/18/20 22:05) Ct Angio Chest/Abd W (05/18/20 22:21) Hcg,Qualitative Serum (05/18/20 22:21) Medications Given in ED Current Medications Medications Dose Ordered Sig/Rigoberto Route Start Time Stop Time Status Last Admin Dose Admin Al Hydrox/Mg Hydrox/Simethicone 30 ml ONCE ONCE PO 05/18/20 22:00 05/18/20 22:01 DC 05/18/20 21:54 30 ML Fentanyl Citrate 50 mcg ONCE ONCE IVP 05/18/20 22:00 05/18/20 22:01 DC 05/18/20 21:54 50 MCG Lidocaine HCl 15 ml ONCE ONCE PO 05/18/20 22:00 05/18/20 22:01 DC 05/18/20 21:54 15 ML Lorazepam 0.5 mg ONCE PRN IVP 05/18/20 22:15 05/18/20 22:12 0.5 MG Vital Signs/I&O 05/18/20 21:40 Temp 36.6 Pulse 73 Resp 16 B/P (MAP) 136/89 (105) O2 Delivery Room Air Departure Impression Primary Impression: Chest pain Additional Impression: Symptomatic cholelithiasis Disposition: HOME, SELF-CARE Condition: Stable Departure-Patient Inst. Decision time for Depature: 22:55 Referrals: VALERIO NGUYEN BRETT D DO KIDO, TAKAAKI MD SEALS, LARRY E DO (PCP/Family) Primary Care Physician Patient Instructions: Gallbladder Diet Add. Discharge Instructions: Follow-up with the surgeon of your choosing next week or your primary care provider to obtain an ultrasound dedicated to looking at the gallbladder. All discharge instructions reviewed with patient and/or family. Voiced understanding. FABIANO FOSTER BARMAID May 18, 2020 21:50
[2020-05-18 21:54] LABS: BASOPHILS # (AUTO) 0.1 10^3/uL (0.0-0.1); BASOPHILS % (AUTO) 1 % (0-10); EOSINOPHILS # (AUTO) 0.2 10^3/uL (0.0-0.3); EOSINOPHILS % (AUTO) 3 % (0-10); HEMATOCRIT 38 % (35-52); HEMOGLOBIN 13.3 g/dL (11.5-16.0); LYMPHOCYTES # (AUTO) 3.7 10^3/uL (1.0-4.0); LYMPHOCYTES % (AUTO) 44 % (12-44); MEAN CORPUSCULAR HEMOGLOBIN 31 pg (25-34); MEAN CORPUSCULAR HGB CONC 35 g/dL (32-36); MEAN CORPUSCULAR VOLUME 90 fL (80-99); MEAN PLATELET VOLUME 9.8 fL (9.0-12.2); MONOCYTES # (AUTO) 0.6 10^3/uL (0.0-1.0); MONOCYTES % (AUTO) 7 % (0-12); NEUTROPHILS # (AUTO) 3.9 10^3/uL (1.8-7.8); NEUTROPHILS % (AUTO) 46 % (42-75); PLATELET COUNT 213 10^3/uL (130-400); WHITE BLOOD COUNT 8.5 10^3/uL (4.3-11.0)
[2020-05-18] MEDS ORDERED: LIDOCAINE 2% VISCOUS 15 ML UDC PO ONE (22:00)
[2020-05-18] MEDS ORDERED: fentaNYL INJECTION 100 MCG/2 ML AMP IVP ONE (22:00)
[2020-05-18] MEDS ORDERED: ANTACID SUSP 30 ML UDC (MYLANTA) PO ONE (22:00)
[2020-05-18] MEDS ORDERED: LORazepam INJ 2 MG/ML (ATIVAN) VIAL ONE (22:05)
[2020-05-18 22:09] LABS: INR 0.9 (0.8-1.4); PROTHROMBIN TIME PATIENT 12.2 SEC (12.2-14.7)
[2020-05-18 22:15] LABS: ALBUMIN 4.4 GM/DL (3.2-4.5); CHLORIDE 106 MMOL/L (98-107); POTASSIUM 3.6 MMOL/L (3.6-5.0); SODIUM 140 MMOL/L (135-145)
[2020-05-18] MEDS ORDERED: LORazepam INJ 2 MG/ML (ATIVAN) VIAL IVP PRN (22:15)
[2020-05-18 22:16] LABS: CALCIUM 9.4 MG/DL (8.5-10.1)
[2020-05-18 22:18] LABS: GLUCOSE 105 MG/DL (70-105); TOTAL PROTEIN 7.8 GM/DL (6.4-8.2)
[2020-05-18 22:19] LABS: CARBON DIOXIDE 22 MMOL/L (21-32)
[2020-05-18 22:20] LABS: BILIRUBIN,TOTAL 0.4 MG/DL (0.1-1.0)
[2020-05-18 22:21] LABS: ALKALINE PHOSPHATASE 91 U/L (40-136); CREATININE SERUM 0.79 MG/DL (0.60-1.30); GFR ESTIMATED > 60
[2020-05-18 22:22] LABS: BUN/CREATININE RATIO 10
[2020-05-18 22:24] LABS: ALANINE AMINOTRANSFERASE 29 U/L (0-55); MAGNESIUM 1.9 MG/DL (1.6-2.4)
[2020-05-18 22:25] LABS: LIPASE 18 U/L (8-78)
--- NOTE | 2020-05-18 22:29 | Diagnostic Imaging Report ---
PATIENT HISTORY: Chest pain. TECHNIQUE: Single frontal view of the chest. COMPARISON: None FINDINGS: The lung volumes are normal. No focal consolidation is seen. No large pleural effusion or pneumothorax is seen. The cardiomediastinal silhouette is normal in size and contour. No acute osseous abnormality is seen. IMPRESSION: No acute pulmonary abnormality seen. Dictated by: Dictated on workstation # [id number]
[2020-05-18] MEDS ORDERED: IOHEXOL 350 MG/ML 100 ML (OMNIPAQUE 350) VIAL IV ONE (23:00)
[2020-05-18] MEDS ORDERED: NS 100 ML (IVPB) BAG IV ONE (23:00)
[2020-05-18] MEDS ORDERED: HYOSCYAMINE 0.125 MG (LEVSIN) TAB PO ONE (23:15)
[2020-05-18] MEDS ORDERED: KETOROLAC 30 MG/ML VIAL IVP ONE (23:15)
[2020-05-18 23:39] VITALS: BP 127/85
--- NOTE | 2020-05-19 07:43 | Diagnostic Imaging Report ---
EXAMINATION: CT angiography of the chest and abdomen. TECHNIQUE: After intravenous administration of contrast, thin section axial CT angiography of the abdomen and chest were obtained. 3D MIP reformats were provided. All CT scans use one or more of the following dose optimizing techniques: automated exposure control, MA and/or KvP adjustment based on a patient size and exam type, or iterative reconstruction. HISTORY: chest pain, soa, ruq pain COMPARISON: None available. FINDINGS: Vascular: No filling defects within the pulmonary arteries. Thoracic aorta is normal in caliber. There is no edema or pneumonia. No pleural effusion. No pneumothorax. No suspicious nodules. Heart size is normal. There are no coronary artery calcifications. No pericardial effusion. Aorta is normal in caliber. There is no axillary or supraclavicular lymphadenopathy. There is no mediastinal lymphadenopathy. The liver is normal without focal lesion. There is no biliary ductal dilation. Gallbladder is normal. Pancreas is normal. Spleen is normal. Adrenal glands are normal. The kidneys are normal. There is no hydronephrosis. Visualized bowel is normal in caliber without obstruction or inflammation. No free fluid or air. No abdominal lymphadenopathy. There are no suspicious osseus lesions. IMPRESSION: 1. No acute abnormality in the chest or abdomen. 2. Agree with preliminary interpretation. Dictated by: Dictated on workstation # [id number]
== END 2020-05-18 23:42 | disposition home or self-care (01) ==
LOC: EDUNIT# 21:38 → ER 21:40
DX: R07.89 Other chest pain (principal); K80.20 Calculus of gallbladder without cholecystitis without obstruction; Z88.0 Allergy status to penicillin; Z88.2 Allergy status to sulfonamides; Z87.891 Personal history of nicotine dependence; Z77.22 Contact with and (suspected) exposure to environmental tobacco smoke (acute) (chronic); Z82.49 Family history of ischemic heart disease and other diseases of the circulatory system
CPT/HCPCS: 36415; 71045; 71275; 74175; 80053; 83690; 83735; 83874; 83880; 84484; 84703; 85025; 85379; 85610; 85730; 93005; 93041

== ENCOUNTER → 2020-05-23 | Outpatient (CLI) | payer BC ==
--- NOTE | 2020-05-23 12:12 | Diagnostic Imaging Report ---
PROCEDURE: US Gallbladder. TECHNIQUE: Multiple Real-time grayscale images were obtained over the right upper quadrant in various projections. INDICATION: Right upper quadrant pain with nausea and vomiting. FINDINGS: The liver is mildly enlarged at 19.2 cm. No discrete liver mass is identified. The portal vein is patent and shows normal direction of flow. The gallbladder does contain small stones. The gallbladder wall does appear to be slightly thickened at 4 mm. No pericholecystic fluid is identified. No biliary ductal dilatation is identified. The pancreas is unremarkable. The visualized abdominal aorta is nonaneurysmal. The IVC is patent. The right kidney is without evidence of calculus or hydronephrosis. There is no ascites. No sonographic Hawkins's sign is present. IMPRESSION: 1. Mild hepatomegaly. 2. Cholelithiasis with mild gallbladder wall thickening. Cholecystitis cannot be entirely excluded. A Nuclear Medicine HIDA scan may be useful for further evaluation. Dictated by: Dictated on workstation # [id number]
== END ==
LOC: RAD 09:30
PROVIDERS: ATTEND Surgery
DX: K80.20 Calculus of gallbladder without cholecystitis without obstruction (principal); K82.8 Other specified diseases of gallbladder; K81.9 Cholecystitis, unspecified; R16.0 Hepatomegaly, not elsewhere classified
CPT/HCPCS: 76705

== ENCOUNTER 2020-07-07 05:44 | Outpatient (RCR) | payer BC ==
[~2020-07-07] VITALS: Ht 170.2 cm; Wt 99.8 kg
== END 2020-07-07 09:35 | disposition home or self-care (01) ==
LOC: PREOP 05:44
PROVIDERS: ATTEND Surgery
DX: Z01.812 Encounter for preprocedural laboratory examination (principal); K80.20 Calculus of gallbladder without cholecystitis without obstruction
CPT/HCPCS: 87635

== ENCOUNTER 2020-07-11 08:21 | Day surgery (SDC) | payer BC ==
[~2020-07-11] VITALS: Ht 170 cm; Wt 99.8 kg
[2020-07-11] VITALS (9 sets, daily range): BP systolic 106–135; BP diastolic 48–78
[2020-07-11] MEDS ORDERED: ROCURONIUM 10 MG/ML 5 ML SYRINGE IV ONE (08:59)
[2020-07-11] MEDS ORDERED: proPOfol 200 MG/20 ML (DIPRIVAN) VIAL IV ONE (08:59)
[2020-07-11] MEDS ORDERED: MIDAZOLAM 2 MG/2 ML (VERSED) VIAL ONE (08:59)
[2020-07-11] MEDS ORDERED: LIDOCAINE PF 2% 5 ML (XYLOCAINE) VIAL ONE (08:59)
[2020-07-11] MEDS ORDERED: LIDOCAINE/EPI 1%-1:200,000 (XYLOCAINE) 30 ML VIAL ONE (08:59)
[2020-07-11] MEDS ORDERED: NEOSTIGMINE 3 MG/3 ML VIAL ONE (08:59)
[2020-07-11] MEDS ORDERED: fentaNYL INJECTION 100 MCG/2 ML AMP ONE (08:59)
[2020-07-11] MEDS ORDERED: GLYCOPYRROLATE 0.2 MG/ML (ROBINUL) 2 ML VIAL ONE (08:59)
[2020-07-11] MEDS: LACTATED RINGERS 1,000 ML IV PRN ×2 (08:59→11:37)
[2020-07-11] MEDS ORDERED: ONDANSETRON 4 MG/2 ML (SDV) Z0FRAN ONE (08:59)
[2020-07-11] MEDS ORDERED: CLINDAMYCIN 600 MG/50 ML IVPB 50 ML IV ONE (09:00)
[2020-07-11 09:12] LABS: BASOPHILS % (AUTO) 0 % (0-10); EOSINOPHILS # (AUTO) 0.1 10^3/uL (0.0-0.3); EOSINOPHILS % (AUTO) 2 % (0-10); HEMATOCRIT 41 % (35-52); LYMPHOCYTES # (AUTO) 2.6 10^3/uL (1.0-4.0); LYMPHOCYTES % (AUTO) 36 % (12-44); MEAN CORPUSCULAR HEMOGLOBIN 31 pg (25-34); MEAN CORPUSCULAR HGB CONC 34 g/dL (32-36); MEAN CORPUSCULAR VOLUME 92 fL (80-99); MEAN PLATELET VOLUME 9.8 fL (9.0-12.2); MONOCYTES # (AUTO) 0.5 10^3/uL (0.0-1.0); MONOCYTES % (AUTO) 7 % (0-12); NEUTROPHILS # (AUTO) 3.8 10^3/uL (1.8-7.8); NEUTROPHILS % (AUTO) 54 % (42-75); PLATELET COUNT 249 10^3/uL (130-400); WHITE BLOOD COUNT 7.1 10^3/uL (4.3-11.0)
--- NOTE | 2020-07-11 09:59 | Progress Note-Pre Operative ---
Pre-Operative Progress Note H&P Reviewed The H&P was reviewed, patient examined and no changes noted. Date Seen by Provider: Jul 11, 2020 Time Seen by Provider: 09:55 Date H&P Reviewed: Jul 11, 2020 Time H&P Reviewed: 09:50 Pre-Operative Diagnosis: Chronic calculous cholecystitis SADE MANZANARES APRN Jul 11, 2020 09:59
[2020-07-11] MEDS ORDERED: ONDANSETRON 4 MG/2 ML (SDV) Z0FRAN IVP PRN ×2 (10:00→12:15)
[2020-07-11] MEDS ORDERED: morphine INJ 10 MG/ML 1ML (SYR OR VIAL) IVP PRN (10:00)
[2020-07-11] MEDS ORDERED: HYDROcodone/APAP 5 MG/325 MG (LORTAB) TAB PO ONE (10:00)
[2020-07-11] MEDS ORDERED: ACETAMINOPHEN 325 MG TABLET PO PRN (10:00)
[2020-07-11] MEDS ORDERED: HYDR-4227 PO (10:01)
--- NOTE | 2020-07-11 10:02 | Discharge Inst-Surgical ---
D/C Lap Instructions-KIDO Reconcile Patient Problems Problems Reviewed?: Yes New, Converted, or Re-Newed RX: RX on Chart Follow Up Appt in 2 weeks Activity as tolerated No driving for 24 hours No driving while on pain medications Incentive Spirometry use every 2 hours while awake Regular Diet Symptoms to Report: Fever over 101 degree F, Nausea/Vomiting Infection Signs and Symptoms to report: Increased redness, Foul odor of wound, Increased drainage Bathing instructions: May shower Operative Area Clean/Dry; Keep incision clean/dry If any problems/questions: Contact your physician or go to Emergency Room SADE MANZANARES APRN Jul 11, 2020 10:02
[2020-07-11] MEDS ORDERED: SEVOFLURANE (ULTANE) 15 ML INHAL SOLN ONE (11:53)
--- NOTE | 2020-07-11 11:58 | Progress Note-Post Operative ---
Post-Operative Progess Note Surgeon (s)/Transportation Planning Technician (s) Surgeon ROBERTA LINTON MD Transportation Planning Technician: keri barber ROLL LINE OPERATOR Pre-Operative Diagnosis Chronic calculous cholecystitis Post-Operative Diagnosis same Procedure & Operative Findings Date of Procedure 07/11/20 Procedure Performed/Findings laparoscopic cholecystectomy Anesthesia Type get Estimated Blood Loss Estimated blood loss (mL): minimal Specimens/Packing Specimens Removed gallbladder ROBERTA LINTON MD Jul 11, 2020 11:58
[2020-07-11] MEDS ORDERED: morphine INJ 10 MG/ML 1ML (SYR OR VIAL) IVP ONE (12:15)
[2020-07-11] MEDS ORDERED: HYDROmorphone 2 MG/ML VIAL (DILAUDID) IV ONE (12:15)
[2020-07-11] MEDS ORDERED: HYDROcodone/APAP 5 MG/325 MG (LORTAB) TAB ONE (13:05)
--- NOTE | 2020-07-11 13:18 | Anesthesia-General Post-Op ---
General Patient Condition Mental Status/LOC: Same as Preop Cardiovascular: Satisfactory Nausea/Vomiting: Absent Respiratory: Satisfactory Pain: Controlled Complications: Absent Post Op Complications Complications None Follow Up Care/Instructions Patient Instructions None needed. Anesthesia/Patient Condition Patient Condition Patient is doing well, no complaints, stable vital signs, no apparent adverse anesthesia problems. No complications reported per nursing. IMER APONTE CRNA Jul 11, 2020 13:18
--- NOTE | 2020-07-11 16:53 | OPERATIVE REPORT ---
DATE OF SERVICE: 07/11/2020 ATTENDING PRIMARY CARE PHYSICIAN: Dimitri Shepherd DO. PREOPERATIVE DIAGNOSIS: Symptomatic chronic calculous cholecystitis. POSTOPERATIVE DIAGNOSIS: Symptomatic chronic calculous cholecystitis. PROCEDURE PERFORMED: Laparoscopic cholecystectomy. SURGEON: Roberta Linton MD. ROOFER GYPSUM: Miki Garcia APRN. ANESTHESIA: General endotracheal. ESTIMATED BLOOD LOSS: Minimal. FINDINGS: Multiple small gallstones. DISPOSITION: The patient tolerated the procedure well. INDICATIONS: The patient is a 29-year-old female, who has had a history of pain in the right upper abdominal quadrant during her a few months ago. She reports that after giving , she has had recurrent episodes of pain in the right upper abdominal quadrant usually following meals. An ultrasound was performed, which did show multiple gallstones. DESCRIPTION OF PROCEDURE: The patient was brought to the operating room and laid supine on the table. After adequate IV pain and sedative medications and general endotracheal intubation, the abdomen was prepped and draped in a standard surgical fashion. A 0.5% Marcaine with epinephrine was then used to anesthetize the overlying skin in the left upper abdominal quadrant and a transverse skin incision was made using a 15 blade. An 0 silk suture was applied to the medial aspect of the incision for retraction and a Veress needle inserted with a low opening pressure of 0 mmHg. The abdomen was then insufflated to 15 mmHg pressure. The Veress needle was removed and a 5 mm XL trocar was placed followed by a 5 mm 45-degree angle laparoscope visualizing the peritoneal cavity. A 4-quadrant abdominal exploration was performed. There were mild omental adhesions towards the fundus of the gallbladder. The liver, omentum, small bowel and stomach appeared normal. Under direct visualization, we then proceeded to place a supraumbilical 10 mm port after the skin and peritoneal lining were anesthetized using 0.5% Marcaine with epinephrine and a transverse skin incision was made using a 15 blade. In a similar manner, a right upper abdominal quadrant 5 mm port was placed. The fundus of the gallbladder was retracted anteriorly and superiorly. The patient was then placed in a reverse Trendelenburg position as well as plane right side up, left side down. The hepatoduodenal ligament was then opened using a cautery and blunt dissection using the hook instrument. The entire critical view of safety was identified including the triangle of Calot, the cystic duct and artery as the only two structures going into the gallbladder as well as the cystic plate behind the proximal gallbladder. A timeout was then taken and the cystic duct and artery were then clipped proximally, distally and cut with EndoShears. The gallbladder was then dissected off of the liver bed using electrocautery and hook instrument with visualization of good hemostasis as well as no leaking ducts of Luschka. The gallbladder was removed through the 10 mm port site using an EndoCatch bag. The 10 mm port site fascia and peritoneum were then closed under direct visualization using a Chemo-Heather device and 0 Vicryl suture. The abdomen was desufflated and the remaining ports removed. All the skin incisions were closed using 4-0 Monocryl running subcuticular sutures. Wounds were then cleaned and covered with Dermabond. The patient tolerated the procedure well. We will start IV normal pain medication as well as a clear liquid diet. Once she is tolerating clears, has good pain control with oral pain medications and is ambulating well, we will discharge her home. She will be instructed to do no heavy lifting or exertion, especially for the first 2 weeks. Job ID: [id number] DocumentID: [id number] Dictated Date: 07/11/2020 12:01:17 Scheduling Analyst Date: 07/11/2020 16:52:57 Dictated By: ROBERTA LINTON MD [facility]
== END 2020-07-11 14:10 ==
LOC: SDC 08:21
PROVIDERS: ATTEND Surgery
DX: K80.10 Calculus of gallbladder with chronic cholecystitis without obstruction (principal); K21.9 Gastro-esophageal reflux disease without esophagitis; E66.9 Obesity, unspecified; Z68.34 Body mass index [BMI] 34.0-34.9, adult; Z79.899 Other long term (current) drug therapy; Z88.0 Allergy status to penicillin; Z88.2 Allergy status to sulfonamides; Z87.891 Personal history of nicotine dependence; Z80.3 Family history of malignant neoplasm of breast; Z83.3 Family history of diabetes mellitus; Z82.49 Family history of ischemic heart disease and other diseases of the circulatory system
CPT/HCPCS: 36415; 84703; 85025; 87081; 88304

== ENCOUNTER → 2020-12-20 | Outpatient (CLI) | payer BC ==
[~2020-12-20] MED LIST changes: +HYDR-4227 PO
--- NOTE | 2020-12-20 12:04 | Diagnostic Imaging Report ---
Ultrasound right breast Limited. IMPRESSION: Right axillary mass There are no prior studies available for comparison. By history patient has a palpable abnormality in the right axilla. The ultrasound examination of this area shows no discrete solid or cystic mass. There is no sign of an abscess either. During the course of the exam a prominent 4.1 x 1.2 x 2.0 cm lymph node was identified. This lymph node appears to be predominantly fatty replaced and this most likely accounts for the increased size of the lymph node. There is no abnormal echogenicity associated with the cortex of the lymph node to suggest an active replacement process. IMPRESSION: 1. There is no abnormality to correspond to patient's palpable mass in the right breast. If clinical concern regarding an underlying abnormality persists, then biopsy should still be considered. 2. There is a prominent lymph node. Considerations as above. 3. These results were discussed with Akhil. Dictated by: Dictated on workstation # [id number]
== END ==
LOC: RAD 09:33
PROVIDERS: ATTEND Family Medicine
DX: M79.621 Pain in right upper arm (principal); N63.31 Unspecified lump in axillary tail of the right breast